=== PATIENT | female | born 1980 | race Caucasian/White ===

== ENCOUNTER 2021-04-24 15:28 | Emergency (ER) | payer OTHER ==
[~2021-04-24] VITALS: Ht 165.1 cm; Wt 154.2 kg
[2021-04-24 15:45] VITALS: BP 141/60
[2021-04-24] MEDS ORDERED: KETOROLAC 30 MG/ML VIAL IM ONE (16:15)
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
--- NOTE | 2021-04-24 16:50 | NUR ---
ERMD VERBAL ORDER TO CHANGE TORODOL IM TO IVP.
--- NOTE | 2021-04-24 16:59 | NUR ---
X-Ray at bedside.
[2021-04-24] MEDS ORDERED: IBUP-2213 PO (18:46)
[2021-04-24] MEDS ORDERED: METH-1681 PO (18:46)
[2021-04-24 18:55] VITALS: BP 141/60
--- NOTE | 2021-04-24 18:55 | NUR ---
Patient discharged with v/s stable. Written and verbal after care instructions given and explained. Patient alert, oriented and verbalized understanding of instructions. Ambulatory with to car. All questions addressed prior to discharge. ID band removed. Patient advised to follow up with PMD. Rx of IBUPROFEN, METHOCARBAMOL given. Patient educated on indication of medication including possible reaction and side effects. Opportunity to ask questions provided and answered.
== END 2021-04-24 18:55 | disposition home or self-care (01) ==
LOC: MED 15:28
DX: S40.022A Contusion of left upper arm, initial encounter (principal); M25.512 Pain in left shoulder; I10 Essential (primary) hypertension; V89.2XXA Person injured in unspecified motor-vehicle accident, traffic, initial encounter; Y93.89 Activity, other specified; Y92.89 Other specified places as the place of occurrence of the external cause; Y99.8 Other external cause status
CPT/HCPCS: 71045; 73030; 73090; 81025; 96372; 99284; J1885